=== PATIENT | female | born 1945 | race Caucasian/White ===

== ENCOUNTER 2021-10-13 19:26 | Emergency (ER) | payer BC, MEDICARE ==
[~2021-10-13] VITALS: Ht 162.6 cm; Wt 63.5 kg
[2021-10-13] MEDS ORDERED: HYDROcodone-ACET 5/325MG TAB PO ONE (20:45)
[2021-10-13] MEDS ORDERED: OXYCODONE W/ ACETAMINOPHEN 5/325MG TABLET PO ONE (23:45)
[2021-10-14] MEDS ORDERED: MIDAZOLAM HCL 2MG/2ML 2ml VIAL (1mg/ml) IV ONE (02:45)
[2021-10-14] MEDS ORDERED: fentaNYL CITRATE 100 MCG/2 ML VL IV ONE ×2 (02:45→03:51)
[2021-10-14 04:15] VITALS: BP 149/56
== END 2021-10-14 07:29 | disposition home or self-care (01) ==
LOC: ER 19:26 → EDBD 19:26 → ER 10-14 07:00
DX: T84.020A Dislocation of internal right hip prosthesis, initial encounter (principal); E11.9 Type 2 diabetes mellitus without complications; I10 Essential (primary) hypertension; W18.39XA Other fall on same level, initial encounter; Y93.89 Activity, other specified; Y92.89 Other specified places as the place of occurrence of the external cause; Y99.8 Other external cause status
CPT/HCPCS: 27265; 72192; 73501; 96374; 99285; J2250; J3010; J7030